=== PATIENT | female | born 1970 | race Caucasian/White ===

== ENCOUNTER 2018-07-26 17:48 | Emergency (ER) | END 2018-07-26 19:08 | disposition home or self-care (01) ==

== ENCOUNTER 2019-02-12 05:56 | Observation (INO) | payer OTHER ==
[~2019-02-12] VITALS: Ht 167.6 cm; Wt 108.7 kg
[~2019-02-12 05:56] MED LIST: ALBU18HF INHALATION; BENZ200C68 PO; IBUP-1542 PO; MED4DP PO
[2019-02-12] MEDS ORDERED: ASPIRIN 81 MG TAB PO STA (06:45)
[2019-02-12] MEDS ORDERED: NITROGLYCERIN 2% 1 GM OINT PKT TD STA (06:45)
[2019-02-12] MEDS ORDERED: NITROGLYCERIN (SL) 0.4 MG TAB SL PRN (07:00)
[2019-02-12] MEDS ORDERED: traMADol 50 MG TAB PO ONE (07:30)
[2019-02-12] MEDS: morphine 4 MG/ML VIAL IV STA ×2 (07:37→08:57)
[2019-02-12] MEDS: ONDANSETRON 4 MG INJ IV STA ×2 (07:37→08:57)
[2019-02-12] MEDS ORDERED: ONDANSETRON 4 MG INJ IV PRN ×2 (09:30→14:30)
[2019-02-12] MEDS ORDERED: ACETAMINOPHEN 325 MG TAB PO PRN ×2 (09:30→14:30)
[2019-02-12] MEDS ORDERED: CHOL500010 PO (09:59)
--- NOTE | 2019-02-12 11:00 | ERD ---
ER Documentation Chief Complaint Chief Complaint RIGHT ARM PAIN HPI Patient is a 48-year-old female with history of arrhythmia, hypertension, and asthma who presents with arm pain. Please note a [place] financial developer was used for the entire history and physical exam. The patient said that she has 1 week of right arm pain and now started with left arm pain yesterday. She has shortness of breath as well. She denies chest pain. She said that she saw her doctor who gave her pain medications and patches which were no help and the pain is still present. She had no new trauma or no new workouts. Upon review of old medical records the patient one previous visit to the ER in 2018. Her primary doctor is Dr. Dorman. ROS All systems reviewed and are negative except as per history of present illness. Medications Home Meds Reported Medications Cholecalciferol (Vitamin D3) 5,000 Unit Tablet, 5000 UNIT PO DAILY, TAB 02/12/19 Discontinued Scripts Ibuprofen* (Motrin*) 600 Mg Tab, 600 MG PO Q6, #30 TAB Prov:LISA ALLRED PA-C 07/26/18 Methylprednisolone* (Medrol* DOSE PACK) 4 Mg/Dose-Pack Tab.ds.pk, 4 MG PO . DIRECTED, #1 PACKET Prov:LISA ALLRED PA-C 07/26/18 Benzonatate* (Benzonatate*) 200 Mg Capsule, 200 MG PO TID PRN for COUGH, #15 CAP Prov:LISA LALRED PA-C 07/26/18 Albuterol Sulfate* (Ventolin HFA*) 18 Gm Hfa.aer.ad, 2 PUFF INHALATION Q4H, #1 INHALER Prov:LISA ALLRED PA-C 07/26/18 Allergies Allergies: Coded Allergies: No Known Allergy (Unverified , 02/12/19) FmHx Family History: coronary disease Physical Exam Vitals Vital Signs Date Temp Pulse Resp B/P (MAP) Pulse Ox O2 O2 Flow FiO2 Time Delivery Rate 02/12/19 98.2 58 12 121/71 98 Room Air 10:00 (88) 02/12/19 98.0 57 14 111/63 98 Room Air 07:30 (79) 02/12/19 97.2 66 18 156/92 98 05:58 (113) Physical Exam Const: Moderate distress Head: Atraumatic Eyes: Normal Conjunctiva ENT: Normal External Ears, Nose and Mouth. Neck: Full range of motion. No meningismus. Resp: Clear to auscultation bilaterally Cardio: Regular rate and rhythm, no murmurs Abd: Soft, non tender, non distended. Normal bowel sounds Skin: No petechiae or rashes Back: No midline or flank tenderness Ext: No cyanosis, or edema Neur: Awake and alert Psych: Anxious Result Diagram: 02/12/19 0716 02/12/19 0716 Results 24 hrs Laboratory Tests Test 02/12/19 07:16 White Blood Count 6.5 10^3/ul Red Blood Count 4.31 10^6/ul Hemoglobin 12.5 g/dl Hematocrit 38.2 % Mean Corpuscular Volume 88.6 fl Mean Corpuscular Hemoglobin 29.0 pg Mean Corpuscular Hemoglobin Concent 32.7 g/dl Red Cell Distribution Width 13.1 % Platelet Count 207 10^3/UL Mean Platelet Volume 10.2 fl Immature Granulocytes % 0.200 % Neutrophils % 50.6 % Lymphocytes % 37.5 % Monocytes % 9.2 % Eosinophils % 2.0 % Basophils % 0.5 % Nucleated Red Blood Cells % 0.0 /100WBC Immature Granulocytes # 0.010 10^3/ul Neutrophils # 3.3 10^3/ul Lymphocytes # 2.5 10^3/ul Monocytes # 0.6 10^3/ul Eosinophils # 0.1 10^3/ul Basophils # 0.0 10^3/ul Nucleated Red Blood Cells # 0.0 10^3/ul Sodium Level 143 mmol/L Potassium Level 4.4 mmol/L Chloride Level 106 mmol/L Carbon Dioxide Level 26 mmol/L Anion Gap 11 Blood Urea Nitrogen 20 mg/dl Creatinine 0.60 mg/dl Est Glomerular Filtrat Rate mL/min > 60 mL/min Glucose Level 112 mg/dl Calcium Level 9.1 mg/dl Troponin I < 0.012 ng/ml Current Medications Medications Dose Sig/Nicole Start Time Status Last (Trade) Ordered Route PRN Stop Time Admin Dose Reason Admin Aspirin 162 mg ONCE STAT 02/12/19 DC 02/12/19 (Aspirin) PO 06:45 07:31 02/12/19 06:46 1 inch ONCE STAT 02/12/19 DC 02/12/19 Nitroglycerin TD 06:45 07:32 02/12/19 06:46 (Nitroglyceri n 2% Oint) 1 tab Q5M UP TO 3 02/12/19 Nitroglycerin DOSES PRN 07:00 SL .CHEST (Nitroglyceri PAIN n (Sl Tab) 0.4 Mg) Morphine 4 mg ONCE STAT 02/12/19 DC 02/12/19 Sulfate IV 06:45 08:57 (morphine) 02/12/19 06:46 Ondansetron 4 mg ONCE STAT 02/12/19 DC 02/12/19 HCl (Zofran IV 06:45 08:57 Inj) 02/12/19 06:46 Tramadol 50 mg ONCE ONCE 02/12/19 DC 02/12/19 HCl PO 07:30 07:31 (Ultram) 02/12/19 07:31 Ondansetron 4 mg ER BRIDGE 02/12/19 HCl (Zofran PRN IV 09:30 Inj) NAUSEA/VOMITI 02/13/19 09:29 NG 650 mg ER BRIDGE 02/12/19 Acetaminophen PRN PO 09:30 (Tylenol .MILD PAIN 02/13/19 09:29 Tab) 1-3 OR TEMP Procedures/MDM EKG #1 read by me: Rate/Rhythm: Regular rate and rhythm at a normal rate Intervals: Normal Impression: No evidence of ischemia or arrhythmia EKG #2 read by me: Rate/Rhythm: Regular rate and rhythm at a normal rate Intervals: Normal Impression: No evidence of ischemia or arrhythmia Chest x-ray read by radiology. Patient is a 48-year-old female with cardiac risk factors who presents with bilateral arm pain and shortness of breath. I am concerned for potential acute coronary syndrome. Initial EKGs do not show signs of ischemia and chest x-ray was negative. Troponin was negative. The patient will be admitted to the care of Dr. Duarte as she has [facility] insurance. She will be admitted to a telemetry observation bed. I doubt pneumonia, pneumothorax, pulmonary embolism, or aortic dissection. Departure Diagnosis: Primary Impression: SOB (shortness of breath) Additional Impression: Pain of right arm Condition: DIANNE Son MD Feb 12, 2019 11:00
[2019-02-12] MEDS ORDERED: IBUPROFEN 600 MG TAB PO ONE (13:00)
--- NOTE | 2019-02-12 14:08 | QN ---
Documentation Comment pt seen and examined GREYSON PINEDO MD Feb 12, 2019 14:08
[2019-02-12] MEDS: KETOROLAC 15 MG INJ IV PRN (14:28)
[2019-02-12] MEDS ORDERED: NACL 0.9% 3 ML SYG IV SCH (14:30)
[2019-02-12] MEDS ORDERED: DOCUSATE SODIUM 100 MG CAP PO PRN (14:30)
[2019-02-12] MEDS ORDERED: IBUPROFEN 600 MG TAB PO PRN (14:30)
[2019-02-12 15:27] VITALS: BP 102/62; PULSE 63; PULSE 64; RESP 16
[2019-02-12 15:30] VITALS: Ht 167.6 cm; Wt 108.7 kg
[2019-02-12] MEDS: traMADol 50 MG TAB PO PRN ×2 (17:20→23:53)
--- NOTE | 2019-02-12 19:13 | HP ---
DATE OF ADMISSION: 02/12/2019 REASON FOR ADMISSION: Arm pain. HISTORY OF PRESENT ILLNESS: A 48-year-old female with a past medical history of arrhythmia in [place] , hypertension and asthma who presented to the emergency department complaining of worsening arm pain , right and left, for the past 1 to 11-1/2 weeks according to the patient. The patient's history was obtained with the help of an [place] snuff grinder and screener. The patient said that, for past 1 week, she had p ain in her right arm and it started in the neck shooting all the way to her fingers. She also noted some numbness in the thumb. She had been treated for the same symptoms in [place] where she has been seen by a neuro pathologist. According to the patient, she started having pain also in the left arm that made her worried and came to the emergency department. The patient denied any chest pain, any s hortness of breath. Sometimes, the patient said that she has dizziness. The patient denies any trau ma in the past. On arrival to the ED, vital signs were temperature of 98.2, heart rate was 58, respi rations 12 an initial blood pressure was 156/92. Labs showed a white count of 6.5, hemoglobin 12.5 a nd platelet count 207. BMP within normal limits. The patient had an EKG that showed some isolated T -wave inversions in lead V1. Troponin was less than 0.012. The patient had a chest x-ray showed no evidence of cardiopulmonary disease. The patient received aspirin, nitro, morphine and Zofran and wa s admitted for further management. PAST MEDICAL HISTORY: 1. History of arrhythmia. The patient was told to take propranolol which she had been taking, stop ed 1 month ago. 2. Hypertension. 3. Asthma. ALLERGIES: NONE. PAST SURGICAL HISTORY: None. MEDICATIONS TAKING AT HOME: None. SOCIAL HISTORY: The patient denies any history of smoking, any alcohol or any drug use. She current ly lives with the and children. FAMILY HISTORY: Significant for the twin brother who had 3 to 4 heart stents. REVIEW OF SYSTEMS: The patient complained of bilateral arm pain, more on the right as compared to th e left, associated with some numbness on the right thumb. The patient has had some weakness in the a rm because of this. She denies any change of color. She complained of some dizziness and some heada ches. She denies any blurry vision and denies any nausea, vomiting, any chest pain, any shortness of breath, any abdominal pain or diarrhea. She denies any focal neurological deficits. PHYSICAL EXAMINATION: VITAL SIGNS: Currently, blood pressure 112/84, afebrile, heart rate 62, respirations 14, saturating 98%. GENERAL: The patient was awake, alert, oriented, does not appear to be in any acute distress. HEENT: Pupils equal, round and reactive to light. NECK: Supple. No JVD. HEART: Regular rhythm. LUNGS: Clear to auscultate bilaterally. ABDOMEN: Soft, nontender and nondistended. EXTREMITIES: No clubbing, cyanosis, or edema. The patient has some tenderness to palpation on the n elsa and also has some reduced sensation on the inner side of the right arm. DIAGNOSTIC DATA: BUN and creatinine within normal limits. White count 6.5, hemoglobin 12.7 and plat elet count 207. EKG with some isolated T-wave inversions ____. Chest x-ray within normal limit. ASSESSMENT AND PLAN: This is a 48-year-old female who presented with: 1. Bilateral arm pain, need to rule out any cervical disease. 2. History of hypertension. 3. History of arrhythmia. 4. Obesity. PLAN: At this period of time, the patient will be admitted to tele. Initially, the patient was admi tted in the ER for chest pain; however, true troponins were done that has been negative. Echo had be en ordered. We will also get a CT of the C-spine. Pain control. Rest of the treatment will depend on the patient's hospitalization course. Dictated By: GREYSON EARL/ANDREWS Conf#: [id number] DID#: [id number]
[2019-02-12 19:44] VITALS: BP 126/74; PULSE 60; RESP 18
[2019-02-13] VITALS: BP 123/74; PULSE 60; RESP 18
--- NOTE | 2019-02-13 00:35 | CONS ---
DATE OF ADMISSION: 02/12/2019 DATE OF CONSULTATION: 02/12/2019 REASON FOR CONSULTATION: Right arm pain, rule out acute coronary syndrome. REQUESTING PHYSICIAN: Suzie Duarte MD. HISTORY OF PRESENT ILLNESS: Ms. Ramírez is a 48-year-old female with a history of reported dyslipide karen for which she is not taking medications, and possible hypertension who presents with complaints o f right arm pain ongoing for approximately 2 days, radiating starting from her neck and radiating braden n her arm, worse with movement of the arm. Denied associated chest pain or shortness of breath to me , although per her chest chart biopsy. She does have some shortness of breath. The patient states t hat she has had pain like this prior when she was in [place] and was treated with injections. Upon ar rival, temperature 97.2, blood 156/90, pulse 60, respiration 18, sat 98%. The patient's labs reveale d white count 6.5, hemoglobin 12.5, platelet count of 207. Sodium 143, potassium 4.4, creatinine 0.6 , BUN 20. Troponin negative. The patient underwent a chest x-ray revealing no evidence of acute car diopulmonary abnormalities. The patient's electrocardiogram revealed sinus bradycardia at 56, normal axis, normal intervals. The patient subsequently admitted to the floor and since admit to floor, dillard s ongoing right arm pain. PAST MEDICAL HISTORY: As above in HPI. MEDICATIONS CURRENTLY: 1. Aspirin 81 daily. 2. Ultram. 3. Toradol. 4. Zofran. 5. Tylenol. 6. Motrin. 7. Colace. 8. Sublingual nitroglycerin. ALLERGIES: NO KNOWN DRUG ALLERGIES. SOCIAL HISTORY: No current tobacco, ETOH or illicit drug use. FAMILY HISTORY: No history of sudden cardiac or early CAD. REVIEW OF SYSTEMS: As above in HPI. CONSTITUTIONAL: No fevers, chills. PULMONARY: No current shortness of breath. CARDIOVASCULAR: No current chest pain. GASTROINTESTINAL: No vomiting. GENITOURINARY: No hematuria. MUSCULOSKELETAL: Right arm pain. PSYCHIATRIC: No documented psych history. NEUROLOGIC: No documented history of CVA. PHYSICAL EXAMINATION VITAL SIGNS: Temperature of 98.6, blood pressure 102/60, pulse 60, respiratory rate 16, satting 93%. GENERAL: The patient is alert, awake, no acute distress. NECK: JVP approximately 8 to 9 cm of water. CHEST: Fair air movement throughout. HEART: Regular rate and rhythm. Normal S1, S2, I/ systolic murmur, nondisplaced PMI. ABDOMEN: Positive bowel sounds, soft. EXTREMITIES: No significant pitting edema, 1+ pulses bilateral posterior tibial. LABORATORIES: As above in HPI. . IMAGING STUDIES: As above in HPI. No further imaging. ECG: As above in HPI. No further electrocardiograms for my review at this time. IMPRESSION: 1. Arm pain, assess for acute coronary syndrome. 2. Shortness of breath, assess for acute coronary syndrome per report. The patient denies this time . 3. Mild bradycardia by EKG. 4. Abnormal electrocardiogram, assess for acute coronary syndrome with incomplete right bundle branc h block, secondary repolarization abnormalities. 5. Shoulder pain and neck pain. RECOMMENDATIONS: 1. At this time, would consider further imaging to further assess patient's "current shoulder and ne ck for pathology consistent with the patient's pain." 2. Complete a rule out for myocardial infarction to ensure the patient's arm pain is not indicative of acute coronary syndrome, acute myocardial infarction. 3. Check a 2D echo for this patient's ejection fraction, wall motion and any major abnormalities. 4. Check fasting lipid panel for general risk stratification and initiate lipid-lowering medication as necessary. 5. Continue the patient's pain control. 6. Follow the patient's blood pressure closely off antihypertensives. 7. Check a TSH to be sure that subclinical hypothyroidism is not contributing to any bouts of bradyc ardia. Thank you for allowing me to take part in the care of this patient. I will continue to follow very c losely with you. Further recommendations will be made as the patient to steer the inpatient hospital clinical course. Dictated By: ERIC RAMIRES/ANDREWS Conf#: [id number] DID#: [id number]
[2019-02-13 04:00] VITALS: BP 121/78; PULSE 62; RESP 18
[2019-02-13] MEDS: PANTOPRAZOLE (EC) 40 MG TAB PO SCH (05:30)
[2019-02-13] MEDS: KETOROLAC 15 MG INJ IV PRN (05:30)
[2019-02-13 07:18] VITALS: BP 121/69; PULSE 69; RESP 18
[2019-02-13] MEDS: ASPIRIN 81 MG TAB PO SCH (08:15)
[2019-02-13] MEDS: ENOXAPARIN 40 MG/0.4 ML SYG SC SCH (08:22)
--- NOTE | 2019-02-13 09:36 | PN ---
Date/Time of Note Date/Time of Note DATE: 02/13/19 TIME: 09:36 Assessment/Plan VTE Prophylaxis Risk score (from Nsg)>0 risk: 2 SCD applied (from Nsg): No SCD contraindicated: low risk/ambulating Pharmacological prophylaxis: NA/contraindicated Pharm contraindication: low risk/ambulating Lines/Catheters IV Catheter Type (from Nrsg): Saline Lock Assessment/Plan Assessment/Plan This is a 48-year-old female who presented with: 1. Bilateral arm pain, more on the right side associated with numbness tingling and dermatomal distribution. Patient also has some neck pain ct c spine. Mild congenital cervical canal stenosis. . Mild C6-7 spondylosis. 2. History of hypertension. 3. History of arrhythmia. Has bradycardia on the EKG 4. Obesity. plan -Pain control with Ultram/Toradol we will also add gabapentin -Neuro consult -Patient does not wish to be on narcotics -Pending echo -cw With aspirin/statin Result Diagram: 02/12/19 0716 02/12/19 0716 Results 24hrs Laboratory Tests Test 02/12/19 12:49 02/12/19 18:24 02/13/19 05:10 Creatine Kinase 48 44 Creatine Kinase Index 2.0 2.1 Creatinine Kinase MB (Mass) 0.96 0.93 Troponin I < 0.012 < 0.012 < 0.012 Triglycerides Level 123 Cholesterol Level 223 H LDL Cholesterol, Calculated 156 HDL Cholesterol 42 Cholesterol/HDL Ratio 5.3 Free Thyroxine Index 2.20 Thyroxine (T4) 6.1 Triiodothyronine (T3) Uptake 36.0 Subjective 24 Hr Interval Summary Free Text/Dictation Still has the pain on the right arm not improved since yesterday Does not like to have narcotics at his makes him feel makes her feel bad Says that pain comes for a little bit gets better but then comes right back Exam/Review of Systems Exam Vitals Vital Signs Date Temp Pulse Resp B/P (MAP) Pulse Ox O2 O2 Flow FiO2 Time Delivery Rate 02/13/19 97.9 69 18 121/69 96 07:18 (86) 02/13/19 Room Air 04:00 Intake and Output 02/12/19 02/12/19 02/13/19 1515:00 23:00 07:00 IntakeIntake Total 620 ml 440 ml BalanceBalance 620 ml 440 ml Exam GENERAL: The patient was awake, alert, oriented, does not appear to be in any acute distress. HEENT: Pupils equal, round and reactive to light. NECK: Supple. No JVD. HEART: Regular rhythm. LUNGS: Clear to auscultate bilaterally. ABDOMEN: Soft, nontender and nondistended. EXTREMITIES: No clubbing, cyanosis, or edema. The patient has some tenderness to palpation on the neck and also has some reduced sensation on the inner side of the right arm. Muscle strength 5 x 5 in bilateral upper and lower extremities Cranial nerves II through XII are intact Reflexes 2+ Results Results 24hrs Laboratory Tests Test 02/12/19 12:49 02/12/19 18:24 02/13/19 05:10 Creatine Kinase 48 44 Creatine Kinase Index 2.0 2.1 Creatinine Kinase MB (Mass) 0.96 0.93 Troponin I < 0.012 < 0.012 < 0.012 Triglycerides Level 123 Cholesterol Level 223 H LDL Cholesterol, Calculated 156 HDL Cholesterol 42 Cholesterol/HDL Ratio 5.3 Free Thyroxine Index 2.20 Thyroxine (T4) 6.1 Triiodothyronine (T3) Uptake 36.0 Medications Medication Current Medications Nitroglycerin (Nitroglycerin (Sl Tab) 0.4 Mg) 1 tab Q5M UP TO 3 DOSES PRN SL .CHEST PAIN; Start 02/12/19 at 07:00 Ketorolac Tromethamine (Toradol) 15 mg Q6H PRN IV PAIN Last administered on 02/13/19at 05:30; Admin Dose 15 MG; Start 02/12/19 at 14:30; Stop 02/15/19 at 14:29 IV Flush (NS 3 ml) 3 ml PER PROTOCOL IV ; Start 02/12/19 at 14:30 Ondansetron HCl (Zofran Inj) 4 mg Q6H PRN IV NAUSEA/VOMITING; Start 02/12/19 at 14:30 Acetaminophen (Tylenol Tab) 650 mg Q6H PRN PO .PAIN 1-3 OR TEMP; Start 02/12/19 at 14:30 Ibuprofen (Motrin) 600 mg Q6H PRN PO .PAIN 1-3; Start 02/12/19 at 14:30 Docusate Sodium (Colace) 100 mg Q12H PRN PO .CONSTIPATION; Start 02/12/19 at 14:30 Pantoprazole (Protonix Tab) 40 mg DAILY@06 PO Last administered on 02/13/19at 05:30; Admin Dose 40 MG; Start 02/13/19 at 06:00 Enoxaparin Sodium (Lovenox) 40 mg DAILY SC ; Start 02/13/19 at 09:00 Aspirin (Aspirin) 81 mg DAILY PO Last administered on 02/13/19at 08:15; Admin Dose 81 MG; Start 02/13/19 at 09:00 Tramadol HCl (Ultram) 100 mg Q6H PRN PO MODERATE PAIN LEVEL 4-6 Last administered on 02/12/19at 23:53; Admin Dose 100 MG; Start 02/12/19 at 17:00 GREYSON PINEDO MD Feb 13, 2019 09:36
[2019-02-13 11:46] VITALS: BP 121/69; PULSE 79; RESP 19
[2019-02-13] MEDS: GABAPENTIN 100 MG CAP PO SCH ×2 (12:19→21:54)
--- NOTE | 2019-02-13 13:36 | CONS ---
Assessment/Plan Assessment/Plan Hospital Course (Demo Recall) IMPRESSION: 1. Arm pain, assess for acute coronary syndrome.-neg trop x 3. Denies assoc chest pain or sob at this time. Pain radiates from neck down 2. Shortness of breath, assess for acute coronary syndrome per report. The patient continues to deny at this time. 3. Mild bradycardia by EKG-stable with satble BP 4. Abnormal electrocardiogram, assess for acute coronary syndrome with incom plete right bundle branch block, secondary repolarization abnormalities.-no change on serial ecg. Neg trop>3 5. Shoulder pain and neck pain-ongoing 6. Hypercholesterolemia-LDL 156 HDL 42 Recc: -Tele -will f/u echo -Pain control -agree with and follow imaging of neck and question shoulder -Consider initiation of statin therapy given significanty elevated LDL Consultation Date/Type/Reason Admit Date/Time Feb 12, 2019 at 09:04 Initial Consult Date 02/12/19 Type of Consult Cardiology Reason for Consultation Chest pain/abnl ecg Requesting Provider: GREYSON PINEDO MD Date/Time of Note DATE: 02/13/19 TIME: 13:30 Exam/Review of Systems Vital Signs Vitals Vital Signs Date Temp Pulse Resp B/P (MAP) Pulse Ox O2 O2 Flow FiO2 Time Delivery Rate 02/13/19 98.1 79 19 121/69 98 11:46 (86) 02/13/19 Room Air 04:00 Intake and Output 02/12/19 02/12/19 02/13/19 1515:00 23:00 07:00 IntakeIntake Total 620 ml 440 ml BalanceBalance 620 ml 440 ml Exam Exam Review of Systems: CONSTITUTIONAL: No fevers, chills. PULMONARY: No sob CARDIOVASCULAR: denieschest pain/palpitations GASTROINTESTINAL: No nausea/vomiting. GENITOURINARY: No hematuria/dysuria. MUSCULOSKELETAL: c/o shoulder/neck and arm pain PSYCHIATRIC: The patient denies depression. NEUROLOGIC: No weakness Constitutional: alert Psych: no complaints Head: normocephalic ENMT: mucosa pink and moist Neck: supple, jvd (9 cm wter) Respiratory: clear to auscultation Cardiovascular: regular rate and rhythm Gastrointestinal: soft, non-tender Musculoskeletal: other (pain in shoulder/arm with movement) Extremities: edema (none) Labs Result Diagram: 02/12/19 0716 02/12/19 0716 Results 24hrs Laboratory Tests Test 02/12/19 18:24 02/13/19 05:10 Creatine Kinase 44 Creatine Kinase Index 2.1 Creatinine Kinase MB (Mass) 0.93 Troponin I < 0.012 < 0.012 Triglycerides Level 123 Cholesterol Level 223 H LDL Cholesterol, Calculated 156 HDL Cholesterol 42 Cholesterol/HDL Ratio 5.3 Free Thyroxine Index 2.20 Thyroxine (T4) 6.1 Triiodothyronine (T3) Uptake 36.0 Medications Medications Current Medications Nitroglycerin (Nitroglycerin (Sl Tab) 0.4 Mg) 1 tab Q5M UP TO 3 DOSES PRN SL .CHEST PAIN; Start 02/12/19 at 07:00 Ketorolac Tromethamine (Toradol) 15 mg Q6H PRN IV PAIN Last administered on 02/13/19at 05:30; Admin Dose 15 MG; Start 02/12/19 at 14:30; Stop 02/15/19 at 14:29 IV Flush (NS 3 ml) 3 ml PER PROTOCOL IV ; Start 02/12/19 at 14:30 Ondansetron HCl (Zofran Inj) 4 mg Q6H PRN IV NAUSEA/VOMITING; Start 02/12/19 at 14:30 Acetaminophen (Tylenol Tab) 650 mg Q6H PRN PO .PAIN 1-3 OR TEMP; Start 02/12/19 at 14:30 Ibuprofen (Motrin) 600 mg Q6H PRN PO .PAIN 1-3; Start 02/12/19 at 14:30 Docusate Sodium (Colace) 100 mg Q12H PRN PO .CONSTIPATION; Start 02/12/19 at 14:30 Pantoprazole (Protonix Tab) 40 mg DAILY@06 PO Last administered on 02/13/19at 05:30; Admin Dose 40 MG; Start 02/13/19 at 06:00 Enoxaparin Sodium (Lovenox) 40 mg DAILY SC ; Start 02/13/19 at 09:00 Aspirin (Aspirin) 81 mg DAILY PO Last administered on 02/13/19at 08:15; Admin Dose 81 MG; Start 02/13/19 at 09:00 Tramadol HCl (Ultram) 100 mg Q6H PRN PO MODERATE PAIN LEVEL 4-6 Last administered on 02/12/19at 23:53; Admin Dose 100 MG; Start 02/12/19 at 17:00 Gabapentin (Neurontin) 100 mg TID PO Last administered on 02/13/19at 12:19; Admin Dose 100 MG; Start 02/13/19 at 13:00 ERIC NAZARIO Feb 13, 2019 13:36
[2019-02-13] MEDS ORDERED: IBUPROFEN 600 MG TAB PO PRN (16:00)
[2019-02-13 16:07] VITALS: BP 135/77; PULSE 88; RESP 19
--- NOTE | 2019-02-13 17:06 | RADRPT ---
Vent Rate: 57 bpm RR Interval: 1052 msec AR Interval: 180 msec QRS Duration: 97 msec QT Interval: 442 msec QTC Interval: 431 msec P-R-T [place]: 62 - 55 - 43 degrees Sinus rhythm...normal P axis, V-rate 50- 99 Electronically Signed By: Shantanu Chin
--- NOTE | 2019-02-13 19:14 | RADRPT ---
Echocardiogram Report Patient Name: DAISY BENSONPatient ID: [id number] : 1970 (48y 2m)Study Date: 02/13/2019 7:22:20 AM Gender: FAccession #: [id number] Tech: CT Location: [facility] Ref.Physician: GREYSON PINEDO Height(Cm): BSA: Weight(Kg): Quality: Technically Difficult StudyOrder Physician: GREYSON PINEDO Account #: Procedures: Echocardiographic Report: Transthoracic echocardiogram with complete 2D, M-Mode, and doppler examination. Indications: Chest Pain. Measurements: 2D/M Mode Doppler Measurement Value Normal Range Measurement Value Normal Range LVIDd 2D 5.0 [ 3.8 - 5.2 ] cm LVOT Peak Leander 1.1 [ 70.0 - 110.0 ] cm/sec LVIDs 2D 2.8 [ 2.2 - 3.5 ] cm LVOT Peak PG 5.0 [ 2.0 - 6.0 ] mmHg LVPWd 2D 0.9 [ 0.6 - 0.9 ] cm MV E Peak Leander 0.6 [ 60.0 - 130.0 ] cm/sec IVSd 2D 0.9 [ 0.6 - 0.9 ] cm MV A Peak Leander 0.7 [ 100.0 - 120.0 ] cm/sec AoR Diam 2D 2.7 [ 2.3 - 3.1 ] cm MV E/A 0.9 [ 0.8 - 1.5 ] ratio EDV 2D 120.0 [ 46.0 - 106.0 ] ml MV Decel Time 292 [ 104 - 258 ] msec ESV 2D 28.8 [ 14.0 - 42.0 ] ml Lat E` Leander 0.1 [ 10.0 - 15.0 ] cm/sec EF 2D 76.0 [ 54.0 - 74.0 ] percent Lateral E/E` 7.8 [ 1.0 - 2.0 ] ratio LA Dimen 2D 3.1 [ 2.7 - 3.8 ] cm MV E/A 0.9 [ 0.8 - 1.5 ] ratio TR Peak Leander 1.7 [ 100.0 - 280.0 ] cm/sec TR Peak PG 12.0 mmHg RVSP 15.0 [ 10.0 - 36.0 ] mmHg RA Pressure 3.0 mmHg Findings: Left Ventricle: Normal left ventricular systolic function. Normal left ventricular cavity size. Normal left ventricular wall thickness. Ejection fraction is visually estimated at 60 %. Tissue Doppler/Mitral Doppler indices are consistent with impaired relaxation (Stage I diastolic dysfunction). Right Ventricle: Normal right ventricular size. Normal right ventricular systolic function. Left Atrium: The left atrium is normal in size. Right Atrium: The right atrium is normal in size. Mitral Valve: Normal appearance and function of the mitral valve with trace physiologic regurgitation. Aortic Valve: Normal appearance of the aortic valve. No significant aortic stenosis or insufficiency. Tricuspid Valve: Normal appearance and function of the tricuspid valve with trace physiologic regurgitation. Normal right ventricular systolic pressure. Pulmonic Valve: Normal pulmonic valve appearance. Pericardium: Normal pericardium with no significant pericardial effusion. Aorta: Normal aortic root. IVC: Normal size and normal respiratory collapse consistent with normal right atrial pressure. Conclusions: Normal left ventricular systolic function. Normal left ventricular cavity size. Normal left ventricular wall thickness. Ejection fraction is visually estimated at 60 %. Tissue Doppler/Mitral Doppler indices are consistent with impaired relaxation (Stage I diastolic dysfunction). Normal appearance and function of the mitral valve with trace physiologic regurgitation. Normal appearance and function of the tricuspid valve with trace physiologic regurgitation. Normal right ventricular systolic pressure. Electronically Signed By: Barber Harris 2019-02-13 19:13:41 PDT
[2019-02-13 19:56] VITALS: BP 133/70; PULSE 75; RESP 18
[2019-02-13] MEDS ORDERED: ATORVASTATIN 20 MG TAB PO SCH (21:00)
[2019-02-14] VITALS: BP 128/69; PULSE 71; RESP 18
[2019-02-14] MEDS: traMADol 50 MG TAB PO PRN (02:53)
[2019-02-14 04:00] VITALS: BP 120/63; PULSE 70; RESP 18
[2019-02-14] MEDS: PANTOPRAZOLE (EC) 40 MG TAB PO SCH (07:01)
[2019-02-14 07:20] VITALS: BP 112/57; PULSE 62; RESP 22
[2019-02-14] MEDS: GABAPENTIN 100 MG CAP PO SCH ×2 (08:16→13:46)
[2019-02-14] MEDS: ASPIRIN 81 MG TAB PO SCH (08:16)
[2019-02-14] MEDS: ENOXAPARIN 40 MG/0.4 ML SYG SC SCH (08:17)
--- NOTE | 2019-02-14 09:16 | CONSI ---
Assessment/Plan Assessment/Plan Assessment/Plan (Recall) 48 F w/ significant PMHx, presently for evaluation of bilateral arm pain (R>L) and R hand numbness x 10 days.. The clinical picture could be consistent w/ cervical radiculopathies. Cervical myelopathy is unlikely, though not yet excluded.. CT C spine was without significant bony changes.. 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 48 F who presents for evaluation of R arm pain for 10 days. Also notes L arm pain.. Constant, tingling, aching.. Radiates from neck down arms.. Some numbness in R hand.. Prior, had similar Sx in legs...but that has since resolved.. Denies significant neck trauma.. No weakness. o/w neg Objective Exam Vitals Vital Signs Date Temp Pulse Resp B/P (MAP) Pulse Ox O2 O2 Flow FiO2 Time Delivery Rate 02/14/19 98.2 62 22 112/57 96 Room Air 07:20 (75) Intake and Output 02/13/19 02/13/19 02/14/19 1515:00 23:00 07:00 IntakeIntake Total 600 ml 360 ml 360 ml BalanceBalance 600 ml 360 ml 360 ml Exam PE: Gen Appearance: No Apparent Distress HEENT: Normocephalic Cardiovascular: Regular rate Lungs: Clear bilaterally Abdomen: Soft Extremities: Dry NE: The patient was alert and oriented, able to spell WORLD backwards, and able to recall all three words after a five minute delay. Language was normal. Fund of knowledge was normal. Pupils were equal and reactive to light. There was no afferent pupillary defect. Visual usggs were normal. Funduscopic examination was limited. Extra-ocular movements were full. Ptosis was absent. There was no nystagmus. Facial sensation was normal. Face was symmetric with normal strength. Hearing was intact. Palate movements were normal. Neck strength was normal. There was normal tongue bulk and speed of movement. Tone was normal. Muscle bulk was normal. I did not see fasciculations. Arms and legs were strong. Vibration sensation was diminished in the right hand. Temperature and pinprick sensation was normal. Rapid alternating movements were normal. There was no dysmetria. There was no intention tremor. Gait was deferred due to bedrest. Arm and leg reflexes were 2+ and symmetric. Frazier's sign was absent. Plantar responses were flexor. Results Result Diagram: 02/12/19 0716 02/12/19 0716 Past Medical History reviewed Home Meds Reported Medications Cholecalciferol (Vitamin D3) 5,000 Unit Tablet, 5000 UNIT PO DAILY, TAB 02/12/19 Discontinued Scripts Ibuprofen* (Motrin*) 600 Mg Tab, 600 MG PO Q6, #30 TAB Prov:LISA ALLRED PA-C 07/26/18 Methylprednisolone* (Medrol* DOSE PACK) 4 Mg/Dose-Pack Tab.ds.pk, 4 MG PO . DIRECTED, #1 PACKET Prov:LISA ALLRED PA-C 07/26/18 Benzonatate* (Benzonatate*) 200 Mg Capsule, 200 MG PO TID PRN for COUGH, #15 CAP Prov:LISA ALLRED PA-C 07/26/18 Albuterol Sulfate* (Ventolin HFA*) 18 Gm Hfa.aer.ad, 2 PUFF INHALATION Q4H, #1 INHALER Prov:LISA ALLRED PA-C 07/26/18 Medications Current Medications Nitroglycerin (Nitroglycerin (Sl Tab) 0.4 Mg) 1 tab Q5M UP TO 3 DOSES PRN SL .CHEST PAIN; Start 02/12/19 at 07:00 Ketorolac Tromethamine (Toradol) 15 mg Q6H PRN IV PAIN Last administered on 02/13/19at 05:30; Admin Dose 15 MG; Start 02/12/19 at 14:30; Stop 02/15/19 at 14:29 IV Flush (NS 3 ml) 3 ml PER PROTOCOL IV ; Start 02/12/19 at 14:30 Ondansetron HCl (Zofran Inj) 4 mg Q6H PRN IV NAUSEA/VOMITING; Start 02/12/19 at 14:30 Acetaminophen (Tylenol Tab) 650 mg Q6H PRN PO .PAIN 1-3 OR TEMP; Start 02/12/19 at 14:30 Docusate Sodium (Colace) 100 mg Q12H PRN PO .CONSTIPATION; Start 02/12/19 at 14:30 Pantoprazole (Protonix Tab) 40 mg DAILY@06 PO Last administered on 02/14/19at 07:01; Admin Dose 40 MG; Start 02/13/19 at 06:00 Enoxaparin Sodium (Lovenox) 40 mg DAILY SC ; Start 02/13/19 at 09:00 Aspirin (Aspirin) 81 mg DAILY PO Last administered on 02/14/19at 08:16; Admin Dose 81 MG; Start 02/13/19 at 09:00 Tramadol HCl (Ultram) 100 mg Q6H PRN PO MODERATE PAIN LEVEL 4-6 Last administered on 02/14/19at 02:53; Admin Dose 100 MG; Start 02/12/19 at 17:00 Gabapentin (Neurontin) 100 mg TID PO Last administered on 02/14/19at 08:16; Admin Dose 100 MG; Start 02/13/19 at 13:00 Atorvastatin Calcium (Lipitor) 20 mg HS PO Last administered on 02/13/19at 21 :54; Admin Dose 20 MG; Start 02/13/19 at 21:00 Ibuprofen (Motrin) 600 mg Q4H PRN PO .PAIN 1-3; Start 02/13/19 at 16:00 Allergies: Coded Allergies: No Known Allergy (Unverified , 02/12/19) Social History Smoking Status: Never smoker SOCORRO GARCIA Feb 14, 2019 09:16
[2019-02-14] MEDS ORDERED: MIDAZOLAM 1 MG/ML 2 ML INJ IV ONE (09:30)
[2019-02-14] MEDS ORDERED: METHYLPREDNISOLONE (MEDROL) DOSE PACK PO SCH (09:30)
[2019-02-14] MEDS ORDERED: DEXAMETHASONE 10 MG/ML 1 ML INJ IV ONE (09:30)
[2019-02-14] MEDS ORDERED: LORAZEPAM 2 MG INJ IV ONE ×2 (10:30→12:30)
--- NOTE | 2019-02-14 11:18 | PN ---
Date/Time of Note Date/Time of Note DATE: 02/14/19 TIME: 11:18 Assessment/Plan VTE Prophylaxis Risk score (from Ns)>0 risk: 2 SCD applied (from Ns): No SCD contraindicated: low risk/ambulating Pharmacological prophylaxis: LMWH Lines/Catheters IV Catheter Type (from Nrsg): Saline Lock Assessment/Plan Hospital Course 1. Bilateral arm pain, more on the right side associated with numbness tingling and dermatomal distribution. Patient also has some neck pain ct c spine. Mild congenital cervical canal stenosis. . Mild C6-7 spondylosis. 2. History of hypertension. 3. History of arrhythmia. Has bradycardia on the EKG 4. Obesity. plan -Pain control with Ultram/Toradol we will also add gabapentin -Neuro consult -Patient does not wish to be on narcotics -Pending echo -cw With aspirin/statin Assessment/Plan -Pain control with Ultram/Toradol we will also -c/w gabapentin -c.w lovenox -GI with Protonix -Neuro consult seen -echo 60 % with (Stage I diastolic dysfunction). -cw With aspirin/statin -cervical MRI pending -pending DC Result Diagram: 02/12/1916 02/12/19 0716 Subjective 24 Hr Interval Summary Genitourinary: no complaints Musculoskeletal: bone/joint pain, neck pain Exam/Review of Systems Exam Vitals Vital Signs Date Temp Pulse Resp B/P (MAP) Pulse Ox O2 O2 Flow FiO2 Time Delivery Rate 02/14/19 98.2 62 22 112/57 96 Room Air 07:20 (75) Intake and Output 02/13/19 02/13/19 02/14/19 1515:00 23:00 07:00 IntakeIntake Total 600 ml 360 ml 360 ml BalanceBalance 600 ml 360 ml 360 ml Constitutional: alert, oriented Eyes: nl conjunctiva Respiratory: diminished breath sounds Cardiovascular: regular rate and rhythm Gastrointestinal: soft Neurological: other (decreased sensorium right arm) Medications Medication Current Medications Nitroglycerin (Nitroglycerin (Sl Tab) 0.4 Mg) 1 tab Q5M UP TO 3 DOSES PRN SL .CHEST PAIN; Start 02/12/19 at 07:00 Ketorolac Tromethamine (Toradol) 15 mg Q6H PRN IV PAIN Last administered on 02/13/19at 05:30; Admin Dose 15 MG; Start 02/12/19 at 14:30; Stop 02/15/19 at 14:29 IV Flush (NS 3 ml) 3 ml PER PROTOCOL IV ; Start 02/12/19 at 14:30 Ondansetron HCl (Zofran Inj) 4 mg Q6H PRN IV NAUSEA/VOMITING; Start 02/12/19 at 14:30 Acetaminophen (Tylenol Tab) 650 mg Q6H PRN PO .PAIN 1-3 OR TEMP; Start 02/12/19 at 14:30 Docusate Sodium (Colace) 100 mg Q12H PRN PO .CONSTIPATION; Start 02/12/19 at 14:30 Pantoprazole (Protonix Tab) 40 mg DAILY@06 PO Last administered on 02/14/19at 07:01; Admin Dose 40 MG; Start 02/13/19 at 06:00 Enoxaparin Sodium (Lovenox) 40 mg DAILY SC ; Start 02/13/19 at 09:00 Aspirin (Aspirin) 81 mg DAILY PO Last administered on 02/14/19at 08:16; Admin Dose 81 MG; Start 02/13/19 at 09:00 Tramadol HCl (Ultram) 100 mg Q6H PRN PO MODERATE PAIN LEVEL 4-6 Last administered on 02/14/19at 02:53; Admin Dose 100 MG; Start 02/12/19 at 17:00 Gabapentin (Neurontin) 100 mg TID PO Last administered on 02/14/19at 08:16; Admin Dose 100 MG; Start 02/13/19 at 13:00 Atorvastatin Calcium (Lipitor) 20 mg HS PO Last administered on 02/13/19at 21:54; Admin Dose 20 MG; Start 02/13/19 at 21:00 Ibuprofen (Motrin) 600 mg Q4H PRN PO .PAIN 1-3; Start 02/13/19 at 16:00 Methylprednisolone (Medrol Dose Pack) ay 1: 24 mg on day 1, administe... STD DOSE PACK PO ; Start 02/14/19 at 09:30; Stop 02/19/19 at 23:59 Methylprednisolone (Medrol) 4 mg AC BREAKFAST PO ; Start 02/15/19 at 07:00; Stop 02/19/19 at 07:01 Methylprednisolone (Medrol) 4 mg PC LUNCH PO ; Start 02/15/19 at 13:00; Stop 02/17/19 at 13:01 Methylprednisolone (Medrol) 4 mg PC DINNER PO ; Start 02/15/19 at 19:00; Stop 02/16/19 at 19:01 Methylprednisolone (Medrol) 8 mg HS PO ; Start 02/15/19 at 21:00; Stop 02/15/19 at 21:01 Methylprednisolone (Medrol) 4 mg HS PO ; Start 02/16/19 at 21:00; Stop 02/18/19 at 21:01 Methylprednisolone (Medrol) 24 mg ONCE PO ; Start 02/14/19 at 12:00; Stop 02/14/19 at 12:01 MALATHI ESTRADA Feb 14, 2019 11:18
[2019-02-14 11:27] VITALS: BP 119/74; PULSE 66; RESP 22
--- NOTE | 2019-02-14 11:44 | CONS ---
Consult Date/Type/Reason Admit Date/Time Feb 12, 2019 at 09:04 Initial Consult Date Requesting Provider: GREYSON PINEDO MD Date/Time of Note DATE: 02/14/19 TIME: 11:43 Subjective NO acute events - pt comfortable - BP in good range - no CP now - doubt ACS. ROS: No fever, no chills, no nausea, no vomiting, no diarrhea/constipation No recent weight changes No chest pain, no PND, no orthopnea No dizziness, blurred vision No thirst, no heat or cold intolerance Objective Vitals Vital Signs Date Temp Pulse Resp B/P (MAP) Pulse Ox O2 O2 Flow FiO2 Time Delivery Rate 02/14/19 98.0 66 22 119/74 96 Room Air 11:27 (89) Intake and Output 02/13/19 02/13/19 02/14/19 1515:00 23:00 07:00 IntakeIntake Total 600 ml 360 ml 360 ml BalanceBalance 600 ml 360 ml 360 ml Exam General: WN/WD/NAD, AOx 3 HEENT: Unicetric/atraumatic/EOMI ( follows commands) NECK: JVD elevated, no thyromegaly Lymph: no lymphadenopathy HEART: regular with no S3, II/ systolic murmur at apex, PMI L LUNGS: Coarse sounds ABD: soft, NT, ND, +BS : Intact Neuro: non focal SKIN: chronic changes EXT: trace edema Results/Medications Result Diagram: 02/12/19 0716 02/12/19 0716 Home Meds Reported Medications Cholecalciferol (Vitamin D3) 5,000 Unit Tablet, 5000 UNIT PO DAILY, TAB 02/12/19 Discontinued Scripts Ibuprofen* (Motrin*) 600 Mg Tab, 600 MG PO Q6, #30 TAB Prov:LISA ALLRED PA-C 07/26/18 Methylprednisolone* (Medrol* DOSE PACK) 4 Mg/Dose-Pack Tab.ds.pk, 4 MG PO . DIRECTED, #1 PACKET Prov:LISA ALLRED PA-C 07/26/18 Benzonatate* (Benzonatate*) 200 Mg Capsule, 200 MG PO TID PRN for COUGH, #15 CAP Prov:LISA ALLRED PA-C 07/26/18 Albuterol Sulfate* (Ventolin HFA*) 18 Gm Hfa.aer.ad, 2 PUFF INHALATION Q4H, #1 INHALER Prov:LISA ALLRED PA-C 07/26/18 Medications Current Medications Nitroglycerin (Nitroglycerin (Sl Tab) 0.4 Mg) 1 tab Q5M UP TO 3 DOSES PRN SL .CHEST PAIN; Start 02/12/19 at 07:00 Ketorolac Tromethamine (Toradol) 15 mg Q6H PRN IV PAIN Last administered on 02/13/19at 05:30; Admin Dose 15 MG; Start 02/12/19 at 14:30; Stop 02/15/19 at 14:29 IV Flush (NS 3 ml) 3 ml PER PROTOCOL IV ; Start 02/12/19 at 14:30 Ondansetron HCl (Zofran Inj) 4 mg Q6H PRN IV NAUSEA/VOMITING; Start 02/12/19 at 14:30 Acetaminophen (Tylenol Tab) 650 mg Q6H PRN PO .PAIN 1-3 OR TEMP; Start 02/12/19 at 14:30 Docusate Sodium (Colace) 100 mg Q12H PRN PO .CONSTIPATION; Start 02/12/19 at 14:30 Pantoprazole (Protonix Tab) 40 mg DAILY@06 PO Last administered on 02/14/19at 07 :01; Admin Dose 40 MG; Start 02/13/19 at 06:00 Enoxaparin Sodium (Lovenox) 40 mg DAILY SC ; Start 02/13/19 at 09:00 Aspirin (Aspirin) 81 mg DAILY PO Last administered on 02/14/19at 08:16; Admin Dose 81 MG; Start 02/13/19 at 09:00 Tramadol HCl (Ultram) 100 mg Q6H PRN PO MODERATE PAIN LEVEL 4-6 Last administered on 02/14/19at 02:53; Admin Dose 100 MG; Start 02/12/19 at 17:00 Gabapentin (Neurontin) 100 mg TID PO Last administered on 02/14/19at 08:16; Admin Dose 100 MG; Start 02/13/19 at 13:00 Atorvastatin Calcium (Lipitor) 20 mg HS PO Last administered on 02/13/19at 21:54; Admin Dose 20 MG; Start 02/13/19 at 21:00 Ibuprofen (Motrin) 600 mg Q4H PRN PO .PAIN 1-3; Start 02/13/19 at 16:00 Methylprednisolone (Medrol Dose Pack) ay 1: 24 mg on day 1, administe... STD DOSE PACK PO ; Start 02/14/19 at 09:30; Stop 02/19/19 at 23:59 Methylprednisolone (Medrol) 4 mg AC BREAKFAST PO ; Start 02/15/19 at 07:00; Stop 02/19/19 at 07:01 Methylprednisolone (Medrol) 4 mg PC LUNCH PO ; Start 02/15/19 at 13:00; Stop 02/17/19 at 13:01 Methylprednisolone (Medrol) 4 mg PC DINNER PO ; Start 02/15/19 at 19:00; Stop 02/16/19 at 19:01 Methylprednisolone (Medrol) 8 mg HS PO ; Start 02/15/19 at 21:00; Stop 02/15/19 at 21:01 Methylprednisolone (Medrol) 4 mg HS PO ; Start 02/16/19 at 21:00; Stop 02/18/19 at 21:01 Methylprednisolone (Medrol) 24 mg ONCE PO ; Start 02/14/19 at 12:00; Stop 02/14/19 at 12:01 Assessment/Plan Hospital Course (Demo Recall) 1. Arm pain, assess for acute coronary syndrome.-neg trop x 3. Denies assoc chest pain or sob at this time. Pain radiates from neck down - DOUBt ACS. 2. Shortness of breath, assess for acute coronary syndrome per report. The p atient continues to deny at this time. BETTER. 3. Mild bradycardia by EKG-stable with satble BP - stable Hr now. 4. Abnormal electrocardiogram, assess for acute coronary syndrome with incomplete right bundle branch block, secondary repolarization abnormalities.-no change on serial ecg. Neg trop>3 - r/o KS 5. Shoulder pain and neck pain-ongoing 6. Hypercholesterolemia-LDL 156 HDL 42 AIDEN SCHROEDER MD Feb 14, 2019 11:44
[2019-02-14] MEDS ORDERED: METHYLPREDNISOLONE 4 MG TAB PO SCH (12:00)
--- NOTE | 2019-02-14 12:37 | PDOCDIS ---
Discharge Instructions DIAGNOSIS Discharge Diagnosis cervical DDD with upper extremity neuropathy. CONDITION [id number] Patient Condition: [id number] Stable ACTIVITY: [id number] Activity Restrictions: [id number] Slowly Increase Activity Rest between Activity FOLLOW UP/APPOINTMENTS Follow-up Plan PCP 1 week MALATHI ESTRADA Feb 14, 2019 12:36
[2019-02-14] MEDS ORDERED: GABA100C14 PO (12:39)
[2019-02-14] MEDS ORDERED: ATOR20TA65 PO (12:39)
[2019-02-14] MEDS ORDERED: NITR0.4T32 SL (12:39)
[2019-02-14] MEDS ORDERED: ASPI-831 PO (12:39)
[2019-02-14] MEDS ORDERED: Methylprednisolone Dose Pack PO (12:39)
--- NOTE | 2019-02-14 12:42 | DS ---
Date/Time of Note Date/Time of Note DATE: 02/14/19 TIME: 12:42 Discharge Summary Admission/Discharge Info Admit Date/Time Feb 12, 2019 at 09:04 Discharge Date/Time Discharge Diagnosis cervical DDD with upper extremity neuropathy. Patient Condition: Stable Consults Dr Miller, neurology, Dr Harris cardiology Procedures echocardiogram Hospital Course Ms. Ramírez is a 48-year-old female with a history of reported dyslipidemia for which she is not taking medications, and possible hypertension who presents with complaints of right arm pain ongoing for approximately 2 days, radiating starting from her neck and radiating down her arm, worse with movement of the arm. Denied associated chest pain or shortness of breath to me, although per her chest chart biopsy. She does have some shortness of breath. The patient states that she has had pain like this prior when she was in [place] and was treated with injections. Upon arrival, temperature 97.2, blood 156/90, pulse 60, respiration 18, sat 98%. The patient's labs revealed white count 6.5, hemoglobin 12.5, platelet count of 207. Sodium 143, potassium 4.4, creatinine 0.6, BUN 20. Troponin negative. The patient underwent a chest x-ray revealing no evidence of acute cardiopulmonary abnormalities. The patient's electrocardiogram revealed sinus bradycardia at 56, normal axis, normal intervals. The patient subsequently admitted to the floor and since admit to floor, has ongoing right arm pain. PAST MEDICAL HISTORY: As above in HPI. Ds: 1. Bilateral arm pain, more on the right side associated with numbness tingling and dermatomal distribution. Patient also has some neck pain ct c spine. Mild congenital cervical canal stenosis. Mild C6-7 spondylosis. 2. History of hypertension. 3. History of arrhythmia. Has bradycardia on the EKG 4. Obesity. during hospitalization pt was on telemetry service. DR Harris assesses pt and ruled out for myocardial infarction. Dr Harris checked a 2D echo for this patient's ejection fraction, wall motion and any major abnormalities, there is a diastolic stage 1 dysfunction. Cardiology recommended initiate lipid-lowering medication, Pt BP was liable and she was not started on any antihypertensive. We controlled plan with Gabapentin TID, Ultram/Toradol. We called a neuro consult dr Miller and followed her recommendations. CT scan and MRI of the neck was performed. THere were found multilevel DDD and mild central stenosis. Pt was started on Iv steroids and was sent home with medrol pack with recommendation to see PCP. Pt aware about her problems and she is going for the treatment for neurological problems to different places. Patient does not wish to be on narcotics, refused pt medication. Pt was in hospital only for 2 days and she will continue her treatment outpatient. There is no reason to keep pt in hospital. Home Meds Active Scripts [Methylprednisolone Dose Pack] 1 EA EACH No Conflict Check, 0 EA PO .STD DOSE PACK for 7 Days Prov:MALATHI ESTRADA 02/14/19 Gabapentin* (Gabapentin*) 100 Mg Capsule, 100 MG PO TID for 30 Days, CAP Prov:MALATHI ESTRADA 02/14/19 Aspirin (Aspirin) 81 Mg Chew, 81 MG PO DAILY for 30 Days, TAB Prov:MALATHI ESTRADA 02/14/19 Nitroglycerin* (Nitroglycerin* SL) 0.4 Mg Tab.subl, 1 TAB SL .Q5M UP TO 3 DOSES PRN for .CHEST PAIN for 30 Days Prov:MALATHI ESTRADA 02/14/19 Atorvastatin Calcium (Atorvastatin Calcium) 20 Mg Tablet, 20 MG PO HS for 30 Days, TAB Prov:MALATHI ESTRADA 02/14/19 Reported Medications Cholecalciferol (Vitamin D3) 5,000 Unit Tablet, 5000 UNIT PO DAILY, TAB 02/12/19 Discontinued Scripts Ibuprofen* (Motrin*) 600 Mg Tab, 600 MG PO Q6, #30 TAB Prov:LISA ALLRED PA-C 07/26/18 Methylprednisolone* (Medrol* DOSE PACK) 4 Mg/Dose-Pack Tab.ds.pk, 4 MG PO . DIRECTED, #1 PACKET Prov:LISA ALLRED PA-C 07/26/18 Benzonatate* (Benzonatate*) 200 Mg Capsule, 200 MG PO TID PRN for COUGH, #15 CAP Prov:LISA ALLRED PA-C 07/26/18 Albuterol Sulfate* (Ventolin HFA*) 18 Gm Hfa.aer.ad, 2 PUFF INHALATION Q4H, #1 INHALER Prov:LISA ALLRED PA-C 07/26/18 Follow-up Plan PCP 1 week Primary Care Provider Care Physician No Primary Time spent on discharge: < 30 minutes MALATHI ESTRADA Feb 14, 2019 12:42
[2019-02-14 15:29] VITALS: BP 141/84; PULSE 113; RESP 22
[2019-02-15] MEDS ORDERED: METHYLPREDNISOLONE 4 MG TAB PO SCH ×4 (07:00→21:00)
[2019-02-16] MEDS ORDERED: METHYLPREDNISOLONE 4 MG TAB PO SCH (21:00)
== END 2019-02-14 19:27 | disposition home or self-care (01) ==
LOC: FTE 05:56 → 6WM 09:04
PROVIDERS: ADMIT Internal Medicine; ATTEND Internal Medicine
DX: M50.30 Other cervical disc degeneration, unspecified cervical region (principal); G62.9 Polyneuropathy, unspecified; I10 Essential (primary) hypertension; J45.909 Unspecified asthma, uncomplicated; E78.5 Hyperlipidemia, unspecified; E66.9 Obesity, unspecified; Z68.38 Body mass index [BMI] 38.0-38.9, adult; Z79.82 Long term (current) use of aspirin
CPT/HCPCS: 36415; 70551; 71045; 72125; 72141; 80048; 80061; 82550; 82553; 84436; 84479; 84484; 85025; 93005; 93306; 96374; 96375; J1100; J1885; J2060; J2270; J2405; J7509; Z7500; Z7502; Z7610; G0378; J1650; J2250